=== PATIENT | female | born 1940 | race Caucasian/White ===

== ENCOUNTER 2019-02-27 12:36 | Observation (INO) | payer MEDICARE, BC ==
--- NOTE | 2019-02-27 13:37 | ER Document Report ---
ED Medical Screen (RME) - General Chief Complaint: Dizziness Stated Complaint: WEAKNESS Time Seen by Provider: 02/27/19 13:23 Mode of Arrival: Ambulatory Information source: Patient Notes: Patient presents emergency department with complaints of weakness dizziness that all started this morning. Reports when she attempted to get out of bed the whole room was tilting she had to hang onto things to get to the bathroom. denies Trauma no obvious neuro deficit noted patient also reports she is had some shoulder pain for a little bit and is worried she might be having a heart attack. Has history of stents. No history of strokes. Patient is a diabetic. Denies other symptoms such as fever vomiting diarrhea. Denies chest pain. She does take Plavix I have greeted and performed a rapid initial assessment of this patient. A comprehensive ED assessment and evaluation of the patient, analysis of test results and completion of the medical decision making process will be conducted by additional ED providers. Dictation of this chart was performed using voice recognition software; therefore, there may be some unintended grammatical errors. - Related Data Allergies/Adverse Reactions: nitrofurantoin [From Macrodantin] Allergy (Verified 02/27/19 12:45) Penicillins Allergy (Verified 02/27/19 12:45) Sulfa (Sulfonamide Antibiotics) Allergy (Verified 02/27/19 12:45) ivp dye Allergy (Uncoded 02/27/19 12:45) Past Medical History - Social History Chew tobacco use (# tins/day): No Frequency of alcohol use: None Drug Abuse: None - Past Medical History Cardiac Medical History: Reports: Hx Heart Attack - w stent, Hx Hypercholesterolemia, Hx Hypertension Endocrine Medical History: Reports: Hx Diabetes Mellitus Type 1 Renal/ Medical History: Denies: Hx Peritoneal Dialysis Past Surgical History: Reports: Hx Cardiac Surgery - stent placement Physical Exam - Vital signs Vitals: Temp Pulse Resp BP Pulse Ox 97.7 F 60 16 148/55 H 98 02/27/19 12:54 02/27/19 12:54 02/27/19 12:54 02/27/19 12:54 02/27/19 12:54 Course - Vital Signs Vital signs: Temp Pulse Resp BP Pulse Ox 97.7 F 60 16 148/55 H 98 02/27/19 12:54 02/27/19 12:54 02/27/19 12:54 02/27/19 12:54 02/27/19 12:54
[2019-02-27 14:12] LABS: ABSOLUTE EOSINOPHILS # (AUTO) 0.3 10^3/uL (0.0-0.6); ABSOLUTE LYMPHOCYTES (AUTO) 1.8 10^3/uL (0.5-4.7); ABSOLUTE MONOCYTES (AUTO) 0.5 10^3/uL (0.1-1.4); ABSOLUTE NEUT (AUTO) 5.4 10^3/uL (1.7-8.2); BASOPHILS % (AUTO) 0.6 % (0-2); EOSINOPHILS % (AUTO) 3.7 % (0-6); HEMATOCRIT 43.6 % (36.0-47.0); HEMOGLOBIN 14.4 g/dL (12.0-15.5); LYMPHOCYTES % (AUTO) 22.6 % (13-45); MEAN CORPUSCULAR HEMOGLOBIN 27.2 pg (27.0-33.4); MEAN CORPUSCULAR HGB CONC 33.1 g/dL (32.0-36.0); MEAN CORPUSCULAR VOLUME 82 fl (80-97); MONOCYTES % (AUTO) 5.7 % (3-13); PLATELET COUNT 295 10^3/uL (150-450); RED BLOOD COUNT 5.31 10^6/uL (3.72-5.28); RED CELL DISTRIBUTION WIDTH 15.2 % (11.5-14.0); SEGMENTED NEUTROPHILS % (AUTO) 67.4 % (42-78); TOTAL CELLS COUNTED % (AUTO) 100 %
[2019-02-27 14:20] LABS: APPEARANCE,URINE SLIGHTLY-CLOUDY; BILIRUBIN,URINE NEGATIVE (NEGATIVE); COLOR,URINE YELLOW; GLUCOSE, URINE >=500 mg/dL (NEGATIVE); KETONES,URINE NEGATIVE (NEGATIVE); LEUKOCYTE ESTERASE,URINE MODERATE (NEGATIVE); NITRITE,URINE POSITIVE (NEGATIVE); PROTEIN,URINE NEGATIVE (NEGATIVE); URINE SPECIFIC GRAVITY 1.014; UROBILINOGEN,URINE NEGATIVE mg/dL (<2.0)
[2019-02-27 14:29] LABS: ALANINE AMINOTRANSFERASE 25 U/L (9-52); ALBUMIN 4.3 g/dL (3.5-5.0); ALKALINE PHOSPHATASE 75 U/L (38-126); ANION GAP 9 (5-19); ASPARTATE AMINO TRANSFERASE 24 U/L (14-36); BILIRUBIN,DIRECT 0.3 mg/dL (0.0-0.4); BILIRUBIN,TOTAL 0.5 mg/dL (0.2-1.3); BLOOD UREA NITROGEN 14 mg/dL (7-20); CALCIUM 10.3 mg/dL (8.4-10.2); CARBON DIOXIDE 29 mmol/L (22-30); CHLORIDE 101 mmol/L (98-107); CREATINE KINASE 30 U/L (30-135); GLUCOSE 99 mg/dL (75-110); POTASSIUM 4.7 mmol/L (3.6-5.0); SODIUM 139.2 mmol/L (137-145); TOTAL PROTEIN 6.9 g/dL (6.3-8.2)
--- NOTE | 2019-02-27 14:51 | RADIOLOGY REPORT (SQ) ---
EXAM DESCRIPTION: CT HEAD WITHOUT COMPLETED DATE/TIME: 02/27/2019 2:33 pm REASON FOR STUDY: dizzy weak COMPARISON: None. TECHNIQUE: Axial images acquired through the brain without intravenous contrast. Images reviewed wi th bone, brain and subdural windows. Additional sagittal and coronal reconstructions were generated. Images stored on PACS. All CT scanners at this facility use dose modulation, iterative reconstruction, and/or weight based d osing when appropriate to reduce radiation dose to as low as reasonably achievable (ALARA). [facility]: Dose Right [facility]: CareDose [facility]: Dose Right [facility]: Teradose 4D [facility]: [employer] RADIATION DOSE: CT Rad equipment meets quality standard of care and radiation dose reduction techniq ues were employed. CTDIvol: 53.2 mGy. DLP: 1070 mGy-cm. mGy. LIMITATIONS: None. FINDINGS: VENTRICLES: Normal size and contour. CEREBRUM: No masses. No hemorrhage. No midline shift. No evidence for acute infarction. Normal gra y/white matter differentiation. No areas of low density in the white matter. CEREBELLUM: No masses. No hemorrhage. No alteration of density. No evidence for acute infarction. EXTRAAXIAL SPACES: No fluid collections. No masses. ORBITS AND GLOBE: No intra- or extraconal masses. Normal contour of globe without masses. CALVARIUM: No fracture. PARANASAL SINUSES: No fluid or mucosal thickening. SOFT TISSUES: No mass or hematoma. OTHER: No other significant finding. IMPRESSION: NORMAL BRAIN CT WITHOUT CONTRAST. EVIDENCE OF ACUTE STROKE: NO. COMMENT: Quality ID # [id number]: Final reports with documentation of one or more dose reduction techniques (e.g., Automated exposure control, adjustment of the mA and/or kV according to patient size, use of iterative reconstruction technique) TECHNICAL DOCUMENTATION: JOB ID: [id number] [employer]- All Rights Reserved Reading location - IP/workstation name: [email or web address]
--- NOTE | 2019-02-27 15:11 | RADIOLOGY REPORT (SQ) ---
EXAM DESCRIPTION: CHEST 2 VIEWS COMPLETED DATE/TIME: 02/27/2019 1:55 pm REASON FOR STUDY: weakness dizzy COMPARISON: None. EXAM PARAMETERS: NUMBER OF VIEWS: two views TECHNIQUE: Digital Frontal and Lateral radiographic views of the chest acquired. RADIATION DOSE: NA LIMITATIONS: none FINDINGS: LUNGS AND PLEURA: No opacities, masses or pneumothorax. No pleural effusion. MEDIASTINUM AND HILAR STRUCTURES: No masses or contour abnormalities. HEART AND VASCULAR STRUCTURES: Heart normal size. No evidence for failure. BONES: No acute findings. HARDWARE: None in the chest. OTHER: No other significant finding. IMPRESSION: NO ACUTE RADIOGRAPHIC FINDING IN THE CHEST. TECHNICAL DOCUMENTATION: JOB ID: [id number] [employer] ([employer])- All Rights Reserved Reading location - IP/workstation name: [email or web address]
--- NOTE | 2019-02-27 15:36 | ER Document Report ---
ED General - General Chief Complaint: Dizziness Stated Complaint: WEAKNESS Time Seen by Provider: 02/27/19 13:23 Mode of Arrival: Ambulatory Information source: Patient Notes: This is a 78-year-old female with a history of hypertension, coronary artery disease (1 stent), dyslipidemia who presents to the emergency room with sudden onset of gait imbalance and dizziness after waking up this morning. Patient does report that she has neuropathy from her diabetes and had some pain in her left leg which is sharp and shooting and she also felt some sudden dizziness and vertiginous symptoms at the same time. She states that she tried to get up she was swaying to the left. She states that she continues to have gait imbalance and feels like she is falling to the left. TRAVEL OUTSIDE OF THE [place] IN LAST 30 DAYS: No - HPI Onset: This morning Onset/Duration: Sudden Quality of pain: No pain Severity: None Pain Level: Denies Associated symptoms: denies: Body/muscle aches, Fever, Shortness of breath Exacerbated by: Denies Relieved by: Denies Similar symptoms previously: No Recently seen / treated by doctor: No - Related Data Allergies/Adverse Reactions: nitrofurantoin [From Macrodantin] Allergy (Verified 02/27/19 12:45) Penicillins Allergy (Verified 02/27/19 12:45) Sulfa (Sulfonamide Antibiotics) Allergy (Verified 02/27/19 12:45) ivp dye Allergy (Uncoded 02/27/19 12:45) Past Medical History - General Information source: Patient - Social History Smoking Status: Never Smoker Cigarette use (# per day): No Chew tobacco use (# tins/day): No Frequency of alcohol use: None Drug Abuse: None Lives with: Family Family History: None Patient has suicidal ideation: No Patient has homicidal ideation: No - Past Medical History Cardiac Medical History: Reports: Hx Heart Attack - w stent, Hx Hypercholesterol emia, Hx Hypertension Endocrine Medical History: Reports: Hx Diabetes Mellitus Type 1 Renal/ Medical History: Denies: Hx Peritoneal Dialysis Past Surgical History: Reports: Hx Cardiac Surgery - stent placement Review of Systems - Review of Systems Constitutional: denies: Chills, Fever EENT: No symptoms reported Cardiovascular: No symptoms reported Respiratory: No symptoms reported Gastrointestinal: No symptoms reported Genitourinary: No symptoms reported Female Genitourinary: No symptoms reported Musculoskeletal: No symptoms reported Skin: No symptoms reported Hematologic/Lymphatic: No symptoms reported Neurological/Psychological: See HPI Physical Exam - Vital signs Vitals: Temp Pulse Resp BP Pulse Ox 97.7 F 60 16 148/55 H 98 02/27/19 12:54 02/27/19 12:54 02/27/19 12:54 02/27/19 12:54 02/27/19 12:54 Notes: Physical exam: GENERAL: Patient is alert and oriented x3, no acute distress HEAD: Atraumatic, normocephalic. EYES: Pupils equal round and reactive to light, extraocular movements intact, sclera anicteric, conjunctiva are normal. ENT: TMs normal, nares patent, oropharynx clear without exudates. Moist mucous membranes. NECK: Normal range of motion, supple without obvious mass or JVD. LUNGS: Breath sounds clear to auscultation bilaterally and equal. No wheezes rales or rhonchi. HEART: Regular rate and rhythm without murmurs, rubs or gallops. ABDOMEN: Soft, normoactive bowel sounds. No tenderness to palpation. No guarding, no rebound. No masses appreciated. EXTREMITIES: Normal range of motion, no pitting or edema. No clubbing or cyanosis. NEUROLOGICAL: Cranial nerves II through XII grossly intact. Normal speech, moving all extremities. Visual miller are intact. Patient's motor is 5/5 upper and lower extremities. Sensory is grossly intact: She does have baseline neuropathy of the lower extremities in particular). Cerebellar (finger to f latanya was quite good). Reflexes were 2+ and symmetrical. Gait was not assessed because of her sense of imbalance. PSYCH: Normal mood, normal affect. SKIN: Warm, Dry, normal turgor, no rashes or lesions noted. Course - Re-evaluation Re-evalutation: 02/27/19 15:53 Note: The concern for this patient is that she may have a posterior circulation CVA. Her NIH at this time is 0. She does not meet criteria for thrombolytics. - Vital Signs Vital signs: Temp Pulse Resp BP Pulse Ox 97.6 F 58 L 13 166/50 H 98 02/27/19 19:46 02/27/19 20:00 02/27/19 20:00 02/27/19 20:00 02/27/19 20:00 - Laboratory Result Diagrams: 02/27/19 13:34 02/27/19 13:34 Laboratory results interpreted by me: 02/27/19 02/27/19 02/27/19 13:34 13:34 13:34 RBC 5.31 H RDW 15.2 H Calcium 10.3 H Urine Glucose (UA) >=500 H Urine Blood SMALL H Urine Nitrite POSITIVE H Ur Leukocyte Esterase MODERATE H - Diagnostic Test Radiology reviewed: Image reviewed, Reports reviewed - CT of the head shows no acute process - EKG Interpretation by Me Rate: Normal Rhythm: NSR - EKG shows normal sinus rhythm with a ventricular rate of 56, no acute ST-T wave changes Critical Care Note - Critical Care Note Total time excluding time spent on procedures (mins): 60 Discharge - Discharge Clinical Impression: Acute ambulatory dysfunction, CVA Clinical Impression: (Ruled Out): [facility] Condition: Stable Disposition: ADMITTED INPATIENT Admitting Provider: Gayle (Hospitalist) Unit Admitted: [facility]
[2019-02-27] MEDS ORDERED: GLUCAGON,HUMAN RECOMB 1 MG INJ IM PRN (16:16)
[2019-02-27] MEDS ORDERED: DEXTROSE 40% GEL 15 GM TUBE PO PRN ×2 (16:16)
[2019-02-27] MEDS ORDERED: DEXTROSE 50%-WATER 25 GM/50 ML DISP.SYRIN IV PRN ×2 (16:16)
--- NOTE | 2019-02-27 17:07 | PDOC H&P ---
History of Present Illness Patient complains of: dizziness History of Present Illness: JESUS MANUEL RAMON is a 78 year old female with a past medical history of CAD with prior stenting x1, insulin-dependent diabetes mellitus, hyperlipidemia, a patient says she was apparently finend hypertension who presented with dizziness. But woke up around 330 this morning and felt dizzy. She says that when she walked she was leaning towards the left side. She initially reported having some left toe discomfort or pain but she says that this is been chronic and actually has bilateral feet pain. She denies unilateral arm or leg weakness or numbness. Upon encounter, she appears comfortable. On neuro exam, there is no focal weak ness or sensory deficit appreciated. On cerebellar examination, only remarkable finding was an equivocal alternating/hand tapping test on the left arm. Kllmmv-mo-ljhn test was negative. Past Medical History Cardiac Medical History: Reports: Myocardial Infarction - w stent, Hyperlipidema, Hypertension Endocrine Medical History: Reports: Diabetes Mellitus Type 1 Social History Smoking Status: Unknown if Ever Smoked Family History Parental Family History Reviewed: Yes - No premature CAD Children Family History Reviewed: No Sibling(s) Family History Reviewed.: No Medication/Allergy Allergies/Adverse Reactions: nitrofurantoin [From Macrodantin] Allergy (Verified 02/27/19 12:45) Penicillins Allergy (Verified 02/27/19 12:45) Sulfa (Sulfonamide Antibiotics) Allergy (Verified 02/27/19 12:45) ivp dye Allergy (Uncoded 02/27/19 12:45) Review of Systems All systems: reviewed and no additional remarkable complaints except as stated - As mentioned in HPI Physical Exam Vital Signs: Temp Pulse Resp BP Pulse Ox 97.7 F 60 16 148/55 H 98 02/27/19 12:54 02/27/19 12:54 02/27/19 12:54 02/27/19 12:54 02/27/19 12:54 Intake & Output 02/26/19 02/27/19 02/28/19 06:59 06:59 06:59 Weight 160 lb 4.417 oz General appearance: PRESENT: no acute distress, well-developed, well-nourished Head exam: PRESENT: atraumatic, normocephalic Results Laboratory Results: 02/27/19 13:34 02/27/19 13:34 0602/27/19 02/27/19 13:34 13:34 13:34 WBC 8.0 RBC 5.31 H Hgb 14.4 Hct 43.6 MCV 82 MCH 27.2 MCHC 33.1 RDW 15.2 H Plt Count 295 Seg Neutrophils % 67.4 Lymphocytes % 22.6 Monocytes % 5.7 Eosinophils % 3.7 Basophils % 0.6 Absolute Neutrophils 5.4 Absolute Lymphocytes 1.8 Absolute Monocytes 0.5 Absolute Eosinophils 0.3 Absolute Basophils 0.0 Sodium 139.2 Potassium 4.7 Chloride 101 Carbon Dioxide 29 Anion Gap 9 BUN 14 Creatinine 0.72 Est GFR ( Amer) > 60 Est GFR (Non-Af Amer) > 60 Glucose 99 Calcium 10.3 H Total Bilirubin 0.5 AST 24 ALT 25 Alkaline Phosphatase 75 Total Protein 6.9 Albumin 4.3 Urine Color YELLOW Urine Appearance SLIGHTLY-CLOUDY Urine pH 5.0 Ur Specific [place] 1.014 Urine Protein NEGATIVE Urine Glucose (UA) >=500 H Urine Ketones NEGATIVE Urine Blood SMALL H Urine Nitrite POSITIVE H Ur Leukocyte Esterase MODERATE H Urine WBC (Auto) 30 Urine RBC (Auto) 1 02/27/19 02/27/19 13:34 13:34 Creatine Kinase 30 Troponin I < 0.012 Impressions: Chest X-Ray 02/27/19 13:32 IMPRESSION: NO ACUTE RADIOGRAPHIC FINDING IN THE CHEST. Head CT 02/27/19 13:33 IMPRESSION: NORMAL BRAIN CT WITHOUT CONTRAST. EVIDENCE OF ACUTE STROKE: NO. Assessment and Plan - Diagnosis (1) Dizziness Is this a current diagnosis for this admission?: Yes Plan: On neuro exam, there is no focal weakness or sensory deficit appreciated. On cerebellar examination, only remarkable finding was an equivocal alternating/hand tapping test on the left arm. Xyimhv-wr-[id number] test was n egative. CT head was negative. Will pursue an MRI to rule out a posterior or cerebellar stroke. (2) CAD (coronary artery disease) Is this a current diagnosis for this admission?: Yes Plan: Stable. History of stenting x1. Resume home meds once verified. (3) IDDM (insulin dependent diabetes mellitus) Is this a current diagnosis for this admission?: Yes Plan: She takes Basaglar, metformin and Farsiga att home. Accu-Cheks, and insulin sliding scale. Will restart long-term insulin once verified. - Time Time Spent with patient: 25-34 minutes
--- NOTE | 2019-02-27 17:10 | ADVANCED CARE ---
- Diagnosis (1) Dizziness Diagnosis Current: Yes (2) CAD (coronary artery disease) Diagnosis Current: Yes (3) IDDM (insulin dependent diabetes mellitus) Diagnosis Current: Yes Attendance: Patient is with , Osmany on bedside. When asked if she has a specific advanced directive, she says that she does have signed advanced directive forms in the past and initially verbalized "no full code". When further probed and asked in detail, patient however said that she does indeed preferr to get chest compressions, defibrillation or temporary mechanical ventilation if the need arises. She did verbalize that she does not want long-term ventilation or tracheostomy. Her is her surrogate medical decision-maker. Reemphasized that patient is a full code at this time and she and verbalized agreement and understanding. Resuscitation Status: Full Code
--- NOTE | 2019-02-27 19:36 | EKG REPORT ---
SEVERITY:- ABNORMAL ECG - SINUS RHYTHM LEFT ANTERIOR FASCICULAR BLOCK : Confirmed by: Dolores Minor MD 27-Feb-2019 19:35:22
--- NOTE | 2019-02-27 20:09 | RADIOLOGY REPORT (SQ) ---
MR BRAIN WITHOUT IV CONTRAST EXAM DATE: 02/27/2019 12:00 AM CDT HISTORY: R/o cerebellar stroke. Altered mental status. COMPARISON: CT scan from earlier the same day. TECHNIQUE: Multisequence, multiplanar MR imaging of the brain was performed without the administration of intravenous gadolinium. FINDINGS: The ventricles and sulci are normal in size. Tiny scattered areas of T2/FLAIR hyperintense foci are seen in the supratentorial white matter, likely representing chronic microvascular ischemia. There is no acute infarction, intracranial hemorrhage, extra-axial fluid collection, or mass. The brainstem, posterior fossa, and cervicomedullary junction are preserved. The intravascular flow voids are preserved. The orbits are unremarkable. No abnormality of the skull base or calvarium is seen. The paranasal sinuses are clear. IMPRESSION: 1. No acute infarction. 2. Mild chronic microvascular ischemia.
[2019-02-27] MEDS: HEPARIN SOD (PORCINE) 5,000 UNIT/ML 1 ML SYRINGE SUBCUT SCH (22:28)
[2019-02-27] MEDS: INSULIN LISPRO 100 UNIT/ML 3 ML VIAL SUBCUT SCH (22:29)
[2019-02-28] MEDS: INSULIN LISPRO 100 UNIT/ML 3 ML VIAL SUBCUT SCH ×3 (09:11→16:48)
[2019-02-28] MEDS: HEPARIN SOD (PORCINE) 5,000 UNIT/ML 1 ML SYRINGE SUBCUT SCH (09:20)
--- NOTE | 2019-02-28 09:29 | RADIOLOGY REPORT (SQ) ---
EXAM DESCRIPTION: CAROTID DOPPLER COMPLETED DATE/TIME: 02/27/2019 7:49 pm REASON FOR STUDY: TIA COMPARISON: CT brain 02/27/2019 MRI brain 02/27/2019 TECHNIQUE: Grayscale ultrasound, Doppler velocity and spectra, and color Doppler images acquired of the extra-cranial carotid and vertebral arteries. Images stored on PACS. LIMITATIONS: None. FINDINGS: RIGHT CAROTID CCA Velocities: Within normal limits. There is calcific plaque in the distal common carotid artery. Right common carotid artery peak systolic velocity 0.7 m/sec. ICA Velocities Peak systolic 1.2 m/s. End diastolic 0.24 m/s. Proximal ICA/CCA peak systolic ratio 0.5. There is calcific plaque in the distal common carotid artery extending into the carotid bifurcation. At the right carotid bulb, peak systolic velocity 1.2 m/sec, end-diastolic velocity 0.24 m/sec was ob tained. A short segment of the proximal right internal carotid artery is obscured by calcific plaque. Immedi ately distal to the shadowing plaque, right ICA peak systolic velocity 0.8 m/sec, end-diastolic veloc ity 0.2 m/sec suggests against flow significant stenosis. LEFT CAROTID CCA Velocities: Within normal limits. There is calcific plaque in the distal common carotid artery. Left common carotid artery peak systolic velocity 0.68 m/sec ICA Velocities Peak systolic 2.5 m/s. End diastolic 3.6 m/s. Proximal ICA/CCA peak systolic ratio 0.3. There is calcific plaque at the left carotid bifurcation. Proximal to the shadowing plaque, peak sys tolic velocity is 1.2 m/sec, end-diastolic velocity 0.17 m/sec. Immediately distal to the shadowing plaque, left ICA peak systolic velocity of 2.5 m/sec, end-diastolic velocity 0.36 meters per seconds suggests greater than 70% stenosis. This report was called to Dr. Fenton, 0915 hours, 02/28/2019 VERTEBRAL ARTERIES: Antegrade flow. Normal waveforms. SUBCLAVIAN ARTERIES: Not evaluated OTHER: No other significant finding. IMPRESSION: Heavily calcified carotid bifurcations. No flow significant stenosis proximal right ICA by velocity criteria. Greater than 70% stenosis is suggested by velocities left proximal ICA. Dense calcific plaque at the left carotid bifurcation. Antegrade pulsatile vertebral artery flow bilaterally RECOMMENDATION: Report called to Dr. Fenton COMMENT: Quality ID #[id number]: Velocity criteria are extrapolated from the diameter data as defined by dasha nayak Society of Radiologists in Ultrasound Consensus Conference. Radiology 2003: 229; 340-346. TECHNICAL DOCUMENTATION: JOB ID: [id number] [employer]- All Rights Reserved Reading location - IP/workstation name: [email or web address]
--- NOTE | 2019-02-28 18:04 | RADIOLOGY REPORT (SQ) ---
EXAM DESCRIPTION: CTA NECK COMPLETED DATE/TIME: 02/28/2019 5:05 pm REASON FOR STUDY: Abnormal Carotid US. Needs better estimation COMPARISON: None. TECHNIQUE: Axial dynamic scanning technique with dynamic contrast enhancement through the extra-scraper meat nial carotid and vertebral arteries. Multiplanar reconstruction. 3-D MIPS and Volume-rendered imag es acquired at the workstation and saved to PACS. Images are reviewed in soft tissue, bone, lung w indows. All CT scanners at this facility use dose modulation, iterative reconstruction, and/or weight based d osing when appropriate to reduce radiation dose to as low as reasonably achievable (ALARA). [facility]: Dose Right [facility]: CareDose [facility]: Dose Right [facility]: Teradose 4D [facility]: [employer] CONTRAST TYPE AND DOSE: contrast/concentration: Isovue 350.00 mg/ml; Total Contrast Delivered: 70.0 ml; Total Saline Delivered: 75.0 ml RENAL FUNCTION: BUN 14 creatinine 0.72 LIMITATIONS: None. FINDINGS: AORTIC ARCH: Normal three-vessel origin. Bilateral subclavian arteries are patent. No d issection. RIGHT CAROTIDS: Patent common, internal and external carotid arteries without suggestion of significa nt stenosis or irregular plaque. No dissection. RIGHT VERTEBRAL: Patent. No dissection. LEFT CAROTIDS: Patent common, internal, and external carotid arteries. There is significant narrowin g of the origin of the left internal carotid on the order of 70 to 99%. Prominent plaque is present in this area. LEFT VERTEBRAL: Patent. No dissection. OTHER: No other significant finding. OTHER: 3-D reconstructions confirm findings. IMPRESSION: There is significant narrowing of the origin of the left internal carotid artery as desc ribed. COMMENT: Quality ID #[id number]: Measurements of distal internal carotid diameter were used as the denomina tor for stenosis measurement. TECHNICAL DOCUMENTATION: JOB ID: [id number] Quality ID # [id number]: Final reports with documentation of one or more dose reduction techniques (e.g., Au tomated exposure control, adjustment of the mA and/or kV according to patient size, use of iterative reconstruction technique) 2010 [employer]- All Rights Reserved Reading location - IP/workstation name: [email or web address]
[2019-02-28] MEDS ORDERED: (PENDING PHARMACY ID) (Lisinopril [Zestril] 20 MG) PO SCH (18:15)
[2019-02-28] MEDS ORDERED: CLOPIDOGREL BISULFATE 75 MG TABLET PO SCH (19:00)
[2019-02-28] MEDS ORDERED: ASPIRIN 81 MG TABLET, ENT COATED PO SCH (19:00)
[2019-02-28 19:05] VITALS: BP 136/60
[2019-02-28] MEDS ORDERED: ATORVASTATIN CALCIUM 80 MG TABLET PO SCH (22:00)
[2019-03-01] MEDS ORDERED: LISINOPRIL 10 MG TABLET PO SCH (10:00)
[2019-03-01] MEDS ORDERED: METOPROLOL SUCCINATE 50 MG TAB.SR.24H PO SCH (10:00)
--- NOTE | 2019-03-05 18:14 | PDOC DISCHARGE SUMMARY ---
General - Admit/Disc Date/PCP Admission Date/Primary Care Provider: 02/27/19 16:29 TU MARCMU MD Discharge Date: 02/28/19 - Discharge Diagnosis (1) Dizziness Is this a current diagnosis for this admission?: Yes (2) Carotid stenosis, bilateral Is this a current diagnosis for this admission?: Yes (3) CAD (coronary artery disease) Is this a current diagnosis for this admission?: Yes (4) IDDM (insulin dependent diabetes mellitus) Is this a current diagnosis for this admission?: Yes - Additional Information Resuscitation Status: Full Code Discharge Diet: Diabetic Discharge Activity: Activity As Tolerated Prescriptions: Ciprofloxacin HCl [Cipro 500 mg Tablet] 500 mg PO DAILY 3 Days #3 tablet Rosuvastatin Calcium [Crestor 10 mg Tablet] 40 mg PO QHS 30 Days #30 tablet Home Medications: Aspirin [Adult Low Dose Aspirin EC] 81 mg PO QPM 02/27/19 Clopidogrel Bisulfate [Plavix 75 mg Tablet] 75 mg PO QPM 02/27/19 Dapagliflozin Propanediol [Farxiga] 10 mg PO QAM 02/27/19 Fluticasone Propionate [Flonase Nasal [place] 50 Mcg/[place] 16 gm] 1 spray NASL QPMP PRN 02/27/19 Insulin Glargine,Hum.rec.anlog [Basaglar Kwikpen U-100] 20 units SQ QPM 02/27/19 Insulin Glargine,Hum.rec.anlog [Basaglar Kwikpen U-100] 25 units SQ QAM 02/27/19 Liraglutide [Victoza 2-Moisés] 1.8 mg SQ DAILY 02/27/19 Lisinopril [Zestril] 20 mg PO QAM 02/27/19 Metformin HCl [Glucophage XR 500 mg Tablet] 1,000 mg PO QAM 02/27/19 Metformin HCl [Glucophage XR 500 mg Tablet] 500 mg PO QPM 02/27/19 Metoprolol Succinate [Toprol XL 100 mg Tablet] 100 mg PO QAM 02/27/19 Venlafaxine HCl ER [Effexor Xr 37.5 mg Cap.sr] 37.5 mg PO QAM 02/27/19 Ciprofloxacin HCl [Cipro 500 mg Tablet] 500 mg PO DAILY 3 Days #3 tablet 02/28/19 Rosuvastatin Calcium [Crestor 10 mg Tablet] 40 mg PO QHS 30 Days #30 tablet 02/28/19 History of Present Illness History of Present Illness: JESUS MANUEL RAMON is a 78 year old female with a past medical history of CAD with prior stenting x1, insulin-dependent diabetes mellitus, hyperlipidemia, a p atient says she was apparently finend hypertension who presented with dizziness. But woke up around 330 this morning and felt dizzy. She says that when she walked she was leaning towards the left side. She initially reported having some left toe discomfort or pain but she says that this is been chronic and actually has bilateral feet pain. She denies unilateral arm or leg weakness or numbness. Upon encounter, she appears comfortable. On neuro exam, there is no focal weakness or sensory deficit appreciated. On cerebellar examination, only remarkable finding was an equivocal alternating/hand tapping test on the left arm. [id number] test was negative. Hospital Course Hospital Course: (1) Dizziness Resolved. Admitted to telemetry. No focal neurological deficits. On antiplatelets, statins. 02/28/2019. CTA neck. There is significant narrowing of the origin of the left internal carotid artery. 02/27/2019. MRI brain. No acute infarction. Mild chronic microvascular ischemia. 02/27/2019. CT head. Normal brain CT without contrast no evidence of stroke. 02/27/2019. 2D carotid. Heavily calcified carotid bifurcation. Greater than 70% of symptoms is suggested by velocity in the proximal ICA. (2) CAD (coronary artery disease) History of PCI x1. Denies anginal symptoms. Continue antiplatelets, beta blockers and DERRICK. (3) IDDM (insulin dependent diabetes mellitus) Diabetic diet, long-acting insulin, pre-meal insulin, sliding scale insulin, Accu-Chek, hypoglycemia protocol. Restart home meds upon discharge. (4) Carotid stenosis, bilateral I called [facility] to try to transfer patient for possible intervention. I talked to Dr. Quesada patient vascular surgeon who stated that she does not need to be transfered, but advised me to ask pt to call him office and make an appoinment on Sunday. Patient agreed with the plan. She was discharged on atorvastatin 80 mg p.o. daily, Plavix and aspirin. Physical Exam Vital Signs: Temp Pulse Resp BP Pulse Ox 97.9 F 66 12 136/60 H 99 02/28/19 19:05 02/28/19 19:05 02/28/19 19:05 02/28/19 19:05 02/28/19 19:05 General appearance: PRESENT: no acute distress, well-developed, well-nourished Head exam: PRESENT: atraumatic, normocephalic Eye exam: PRESENT: conjunctiva pink, EOMI, PERRLA. ABSENT: scleral icterus Ear exam: PRESENT: normal external ear exam Mouth exam: PRESENT: moist, tongue midline Neck exam: ABSENT: carotid bruit, JVD, lymphadenopathy, thyromegaly Respiratory exam: PRESENT: clear to auscultation fuad. ABSENT: rales, rhonchi, wheezes Cardiovascular exam: PRESENT: RRR. ABSENT: diastolic murmur, rubs, systolic murmur Pulses: PRESENT: normal dorsalis pedis pul Vascular exam: PRESENT: normal capillary refill GI/Abdominal exam: PRESENT: normal bowel sounds, soft. ABSENT: distended, guarding, mass, organolmegaly, rebound, tenderness Rectal exam: PRESENT: deferred Extremities exam: PRESENT: full ROM. ABSENT: calf tenderness, clubbing, pedal edema Neurological exam: PRESENT: alert, awake, oriented to person, oriented to place, oriented to time, oriented to situation, CN II-XII grossly intact. ABSENT: m otor sensory deficit Psychiatric exam: PRESENT: appropriate affect, normal mood. ABSENT: homicidal ideation, suicidal ideation Skin exam: PRESENT: dry, intact, warm. ABSENT: cyanosis, rash Results Laboratory Results: 02/27/19 13:34 02/27/19 13:34 02/27/19 02/27/19 13:34 13:34 Creatine Kinase 30 Troponin I < 0.012 Impressions: Carotid Doppler Study 02/27/19 00:00 IMPRESSION: Heavily calcified carotid bifurcations. No flow significant stenosis proximal right ICA by velocity criteria. Greater than 70% stenosis is suggested by velocities left proximal ICA. Dense calcific plaque at the left carotid bifurcation. Antegrade pulsatile vertebral artery flow bilaterally Head MRI 02/27/19 00:00 IMPRESSION: 1. No acute infarction. 2. Mild chronic microvascular ischemia. Chest X-Ray 02/27/19 13:32 IMPRESSION: NO ACUTE RADIOGRAPHIC FINDING IN THE CHEST. Head CT 02/27/19 13:33 IMPRESSION: NORMAL BRAIN CT WITHOUT CONTRAST. EVIDENCE OF ACUTE STROKE: NO. Neck CTA 02/28/19 00:00 IMPRESSION: There is significant narrowing of the origin of the left internal carotid artery as described. Qualifiers - * PATIENT BEING DISCHARGED WITH ANY OF THE FOLLOWING DIAGNOSIS: No Acute Heart Failure - Is this a Heart Failure Patient?: No
== END 2019-02-28 19:20 | disposition home or self-care (01) ==
LOC: ER 12:36 → INTOOBSV 16:29 → EH 16:29 → 3N 19:56
PROVIDERS: ADMIT Internal Medicine; ATTEND Internal Medicine
DX: R42 Dizziness and giddiness (principal); I25.10 Atherosclerotic heart disease of native coronary artery without angina pectoris; I65.23 Occlusion and stenosis of bilateral carotid arteries; E11.9 Type 2 diabetes mellitus without complications; E78.5 Hyperlipidemia, unspecified; I25.2 Old myocardial infarction; Z95.5 Presence of coronary angioplasty implant and graft; Z79.82 Long term (current) use of aspirin; Z79.899 Other long term (current) drug therapy; Z88.0 Allergy status to penicillin; Z88.8 Allergy status to other drugs, medicaments and biological substances; Z88.2 Allergy status to sulfonamides; Z91.041 Radiographic dye allergy status
CPT/HCPCS: 36415; 70450; 70498; 70551; 71046; 80053; 81001; 82550; 82962; 84484; 85025; 93005; 93010; 93880; 99291; G0378; J1644; J1815; J3490